=== PATIENT | female | born 1975 | race Caucasian/White ===

== ENCOUNTER → 2024-04-23 11:33 | Outpatient (REF) | payer OTHER, SELFPAY | LOC: PAVMRI 11:33 | PROVIDERS: ATTENDING PHYSICIAN Psychiatry & Neurology Neurology; FAMILY PHYSICIAN Family Medicine | DX: G35 Multiple sclerosis (principal) | CPT/HCPCS: 72146 ==

== ENCOUNTER → 2024-04-24 18:01 | Outpatient (REF) | payer OTHER, SELFPAY | LOC: PAVMRI 18:01 | PROVIDERS: ATTENDING PHYSICIAN Psychiatry & Neurology Neurology; FAMILY PHYSICIAN Family Medicine | DX: G35 Multiple sclerosis (principal) | CPT/HCPCS: 70551; 72141 ==